=== PATIENT | female | born 1975 | race Caucasian/White ===

== ENCOUNTER → 2018-03-21 | Outpatient (CLI) | payer BC ==
[~2018-03-21] MED LIST: AZULFIDINE ENT500 MG PO; BALZIVA 35 MCG-1 TAB PO; FLEXERIL 1010 MG/TAB PO; FOLIC ACID 11 MG/TA1 PO; MOBIC15 MG PO; SKELAXIN 800MG800 MG PO; ZYRTEC SYRUP1 MG/ML PO
== END ==
LOC: MC.RAD 03-18 10:00
DX: Z12.31 Encounter for screening mammogram for malignant neoplasm of breast (principal)

== ENCOUNTER → 2018-04-06 | Outpatient (CLI) | payer BC | LOC: COL.RAD 09:25 | DX: G50.1 Atypical facial pain (principal); R20.0 Anesthesia of skin | CPT/HCPCS: A9585 ==

== ENCOUNTER → 2018-05-13 | Outpatient (CLI) | payer BC | LOC: MC.RAD 08:30 | DX: N63.21 Unspecified lump in the left breast, upper outer quadrant (principal) ==

== ENCOUNTER → 2019-10-10 | Outpatient (CLI) | payer BC | LOC: COL.RAD 10:38 | DX: E04.1 Nontoxic single thyroid nodule (principal); Z90.89 Acquired absence of other organs ==

== ENCOUNTER → 2021-01-14 | Outpatient (CLI) | payer BC | LOC: COL.VAS 01-02 13:30 | DX: I34.0 Nonrheumatic mitral (valve) insufficiency (principal) ==

== ENCOUNTER → 2023-04-02 | Outpatient (CLI) | payer BC | LOC: COL.RAD 11:03 | DX: M17.11 Unilateral primary osteoarthritis, right knee (principal) ==

== ENCOUNTER → 2023-12-31 | Outpatient (CLI) | payer BC ==
[~2023-12-31] MED LIST changes: +Iohexol 300 - 100 ML VIAL IV ONE; +NS 100 ML IV SCH
== END ==
LOC: COL.RAD 08:29
DX: M50.122 Cervical disc disorder at C5-C6 level with radiculopathy (principal); M41.82 Other forms of scoliosis, cervical region; M41.84 Other forms of scoliosis, thoracic region; I73.00 Raynaud's syndrome without gangrene; Z90.89 Acquired absence of other organs
CPT/HCPCS: Q9967